=== PATIENT | male | born 1960 | race Caucasian/White ===

== ENCOUNTER 2019-11-07 14:16 | Day surgery (SDC) | payer MEDICARE ==
[2019-11-07] VITALS (10 sets, daily range): BP systolic 103–140; BP diastolic 76–91; PULSE 68–114; TEMP 97.5–97.7
[~2019-11-07] VITALS: Ht 182.9 cm; Wt 87.3 kg
[2019-11-07] MEDS ORDERED: TYLENOL 500MG500 MG PO (15:23)
[2019-11-07] MEDS ORDERED: COUMADIN 5MG5 MG/TAB PO ×2 (15:26→15:27)
[2019-11-07] MEDS ORDERED: ATIVAN 0.50.5 MG/TAB PO (15:28)
[2019-11-07] MEDS ORDERED: IPRATROPIUM BROM3 M1 IH (15:29)
[2019-11-07] MEDS ORDERED: AZO URINARY PAI95 MG PO (15:30)
[2019-11-07] MEDS ORDERED: NORCO 325 MG-51 TAB PO (15:31)
[2019-11-07] MEDS ORDERED: TYLENOL W/COD1 UDTAB PO (15:38)
[2019-11-07] MEDS ORDERED: COUMADIN 22.5 MG/TAB PO (15:43)
--- NOTE | 2019-11-07 15:44 | NUR ---
TO RM AT 1440- CALL LIGHT IN REACH AND GRANDSON AT BEDSIDE.
--- NOTE | 2019-11-07 19:30 | NUR ---
Patient arrived to the floor at 1930, denies needs at this time. Paient alert and oriented, able to ambulate independently. Patient is on 3 liters of O2 at this time, is supported at home on 2 liters with history of COPD. IV in patients right AC, fluids running at this time.
--- NOTE | 2019-11-08 00:30 | NUR ---
Margaritanet able to void for first time, 250mL out. Urine as clear and tea colored. Patient has [address] would like to stay the night, provider notified. Needs denied at this time.
[2019-11-08 04:20] VITALS: BP 105/69; PULSE 77; TEMP 97.3
--- NOTE | 2019-11-08 07:33 | NUR ---
Report from Racheal Angela.
[2019-11-08 07:51] VITALS: BP 128/75; PULSE 89; TEMP 97.4
--- NOTE | 2019-11-08 08:51 | NUR ---
PT UP INDEPENDENTLY IN ROOM DISCHARGE ORDERS RECIEVED.
--- NOTE | 2019-11-08 09:13 | NUR ---
DISHCARGE INSTRUCTIONS REVIEWED WITH PT AND FAMILY. QUESTIONS SOLICITED AND ANSWERED. PT LEFT IN WHEEL CHAIR TO FRONT WITH STAFF.
== END 2019-11-08 09:20 | disposition home or self-care (01) ==
LOC: SDCO 14:16 → SURG 19:30 → SDCO 11-08 09:20
DX: N20.1 Calculus of ureter (principal); J44.1 Chronic obstructive pulmonary disease with (acute) exacerbation; I25.10 Atherosclerotic heart disease of native coronary artery without angina pectoris; M41.9 Scoliosis, unspecified; Z95.5 Presence of coronary angioplasty implant and graft; Z79.01 Long term (current) use of anticoagulants; Z79.52 Long term (current) use of systemic steroids; Z87.891 Personal history of nicotine dependence; Z86.711 Personal history of pulmonary embolism; Z86.718 Personal history of other venous thrombosis and embolism; Z99.81 Dependence on supplemental oxygen
CPT/HCPCS: OP; C1769; C2617; J0690; J1100; J2175; J2405; J2704; J3010; J7120

== ENCOUNTER 2019-11-24 10:39 | Day surgery (SDC) | payer MEDICARE ==
[~2019-11-24] VITALS: Ht 182.9 cm; Wt 90.8 kg
[~2019-11-24 10:39] MED LIST: ATIVAN 0.50.5 MG/TAB PO; AZO URINARY PAI95 MG PO; COUMADIN 22.5 MG/TAB PO; COUMADIN 5MG5 MG/TAB PO; IPRATROPIUM BROM3 M1 IH; NORCO 325 MG-51 TAB PO; TYLENOL 500MG500 MG PO; TYLENOL W/COD1 UDTAB PO
[2019-11-24 11:35] VITALS: BP 119/82; PULSE 95; TEMP 97.4
[2019-11-24 13:45] VITALS: BP 114/83; PULSE 95
--- NOTE | 2019-11-24 13:45 | NUR ---
Patient returns to room 3 per cart from PACU per cart accompanied by Sarah Beth URENA and is awake and alert. On oxygen at 3L per nasal cannula. IV fluids infusing and siderails up x2. Call light in reach. Spouse in room. Allowed to rest.
[2019-11-24 14:00] VITALS: BP 126/82; PULSE 91
--- NOTE | 2019-11-24 14:00 | NUR ---
Patient oxygen at 2L per nasal cannula now. Denies pain or nausea. Taking water.
[2019-11-24 14:15] VITALS: BP 126/81; PULSE 91
--- NOTE | 2019-11-24 14:15 | NUR ---
Eating muffin and drinking water. Denies pain and nausea.
--- NOTE | 2019-11-24 14:25 | NUR ---
Assisted up to the bathroom and is able to void. Returns to room. Dyspneic with exertion. Order obtained for breathing treatment.
--- NOTE | 2019-11-24 14:35 | NUR ---
Eating muffin and breathing treatment initiated.
[2019-11-24 14:40] VITALS: BP 114/83; PULSE 92; TEMP 98.3
--- NOTE | 2019-11-24 14:45 | NUR ---
IV discontinued and patient is dressing self. Keeps oxygen on at 2L per nasal cannula. Spouse in room. Given dismissal instructions and voices understanding of these and follow up appointment.
--- NOTE | 2019-11-24 15:03 | NUR ---
Patient signed dismissal instructions and assisted into wheelchair on own oxygen at 2L per nasal cannula. Dismissed to home per private vehicle driven by spouse and assisted into car by this RN with dismissal instructions in hand.
== END 2019-11-24 15:03 | disposition home or self-care (01) ==
LOC: SDCO 10:39
DX: N20.1 Calculus of ureter (principal); N13.8 Other obstructive and reflux uropathy; J44.9 Chronic obstructive pulmonary disease, unspecified; Z86.711 Personal history of pulmonary embolism; Z79.01 Long term (current) use of anticoagulants; I25.10 Atherosclerotic heart disease of native coronary artery without angina pectoris; Z87.891 Personal history of nicotine dependence
CPT/HCPCS: C1769; J0360; J0690; J2704; J3010

== ENCOUNTER 2021-11-28 07:05 | Day surgery (SDC) | payer MEDICARE ==
[~2021-11-28] VITALS: Ht 183 cm; Wt 79.5 kg
[2021-11-28] VITALS (15 sets, daily range): BP systolic 89–119; BP diastolic 64–82; PULSE 70–104; TEMP 98.1
[2021-11-28 07:57] LABS: HEMATOCRIT 39.1 % (42.0-52.0); HEMOGLOBIN 12.4 g/dl (13.5-18.0); MEAN CELL VOLUME 88 fl (80.0-100.0); MEAN CORPUSCULAR HEMOGLOBIN 28 pg (27-31); MEAN CORPUSCULAR HGB CONC 32 g/dl (33.0-37.0); MEAN PLATELET VOLUME 9.5 fl (7.4-10.4); PLATELET COUNT 233 K/mm3 (130-400); RED BLOOD COUNT 4.45 M/mm3 (4.20-5.60)
[2021-11-28 08:10] LABS: INR 1.2 (0.8-3.0); PROTHROMBIN TIME 13.7 SECONDS (9.7-12.8)
[2021-11-28 08:12] LABS: PARTIAL THROMBOPLASTIN TIME 31.4 SECONDS (26.0-37.0)
[2021-11-28 08:14] LABS: CALCIUM 9.6 mg/dL (8.4-10.2); CREATININE, serum 1.21 mg/dL (0.72-1.25)
[2021-11-28] MEDS ORDERED: ATIVAN 0.50.5 MG/TAB PO (08:20)
[2021-11-28] MEDS ORDERED: PULMICORT0.5 MG/2 M IH (08:22)
[2021-11-28] MEDS ORDERED: PROVENTIL0.09 MG/A1 IH (08:23)
[2021-11-28] MEDS ORDERED: LASIX 20MG TABL20 MG PO (08:26)
--- NOTE | 2021-11-28 08:49 | NUR ---
SEE MERGE FOR ALL MEDICATION ADMINISTRATION TIMES/DOSAGES AND INTRA/POST PROCEDURE SEDATION ASSESSMENTS. PRE PROCEDURE ASSESSMENT COMPLETED IN [facility].
--- NOTE | 2021-11-28 14:20 | NUR ---
All air released from right radial band in 2-3 ml incriments.No bleeding at site.Right radial wrapped with gauze and coban.
--- NOTE | 2021-11-28 14:41 | NUR ---
Discharge instructions given to pt.Pt verbalizes understanding.INT removed,dressing to right radial site observed clean,dry,intact,and soft to touch
== END 2021-11-28 16:25 ==
LOC: COL.CAR 07:05
PROVIDERS: Internal Medicine Cardiovascular Disease
DX: I77.1 Stricture of artery (principal); I26.99 Other pulmonary embolism without acute cor pulmonale; I11.0 Hypertensive heart disease with heart failure; I27.20 Pulmonary hypertension, unspecified; I50.30 Unspecified diastolic (congestive) heart failure; J62.8 Pneumoconiosis due to other dust containing silica; J98.4 Other disorders of lung; R06.00 Dyspnea, unspecified; Z86.718 Personal history of other venous thrombosis and embolism; Z79.899 Other long term (current) drug therapy
CPT/HCPCS: J1644; J2250; J2405; J3010; J7030; Q9967